=== PATIENT | female | born 1940 | race Caucasian/White ===

== ENCOUNTER 2016-10-16 21:04 | Emergency (ER) | payer OTHER ==
[~2016-10-16] VITALS: Ht 162.6 cm; Wt 76.9 kg
[2016-10-16 21:58] LABS: HEMATOCRIT 31.9 % (36.0-46.0); MCH 26.3 PG (29.0-34.0); MCHC 32.6 G/DL (30.0-36.0); MCV 80.6 FL (83-99); MEAN PLAT.VOLUME 11.9 uM^3 (9.5-12.4); PLATELET COUNT 243 K/uL (156-360); RBC DIS.WIDTH-CV 14.3 % (11.8-14.6); RBC DIS.WIDTH-SD 40.8 % (39-53); RED BLOOD COUNT 3.96 M/uL (3.80-5.20); WHITE BLOOD COUNT 6.1 K/uL (4.1-10.2)
[2016-10-16 22:08] LABS: CHLORIDE 108 mEq/L (99-109); POTASSIUM 4.3 mEq/L (3.7-5.4); SODIUM 140 mEq/L (136-147)
[2016-10-16 22:10] LABS: GLUCOSE 326 mg/dL (70-99)
[2016-10-16 22:11] LABS: ANION GAP 13 MEQ/L (2-14)
[2016-10-16 22:12] LABS: TOTAL BILIRUBIN 0.2 mg/dL (0.0-1.0)
[2016-10-16 22:14] LABS: ALKALINE PHOSPHATASE 82 IU/L (3-129); GFR ESTIMATE (CALCULATED) 31 mL/min/
[2016-10-16 22:15] LABS: UREA NITROGEN (BUN) 42 mg/dL (9-23)
[2016-10-16 22:17] LABS: LIPASE 23 U/L (1.0-51.0)
[2016-10-16 22:49] LABS: ADD MIUA? YES; BILIRUBIN NEGATIVE; BLOOD NEGATIVE; COLOR YELLOW ((YELLOW)); GLUCOSE (STRIP) NEGATIVE; KETONES NEGATIVE; LEUKOCYTES MODERATE; NITRITE NEGATIVE; PROTEIN (STRIP) 30; SPECIFIC GRAVITY 1.013 (1.000-1.030); UROBILINOGEN 0.2 MG/DL (0.2-1.0)
[2016-10-16 22:54] LABS: BACTERIA 2+ /HPF; EPITHELIAL CELLS RARE /HPF; MUCUS TRACE /LPF; RED BLOOD CELLS 0-5 /HPF (0-5); UCUL ADDED? YES; WHITE BLOOD CELLS 20-30 /HPF (0-5)
[2016-10-17 00:30] VITALS: BP 167/105
[2016-10-17] MEDS ORDERED: BACTRIM,SEPT1 TABLET PO (00:46)
== END 2016-10-17 05:13 | disposition home or self-care (01) ==
LOC: EME 21:04
DX: N39.0 Urinary tract infection, site not specified (principal); R19.7 Diarrhea, unspecified; N18.9 Chronic kidney disease, unspecified
CPT/HCPCS: 74176; 80053; 81003; 83690; 85027; 87077; 87086; 87186; 87493; 87506; 93005; 99281; 99285; J7030

== ENCOUNTER 2017-09-24 13:57 | Emergency (ER) | payer OTHER ==
[~2017-09-24] VITALS: Ht 162.6 cm; Wt 79.5 kg
[~2017-09-24 13:57] MED LIST: BACTRIM,SEPT1 TABLET PO
[2017-09-24 14:35] LABS: APPEARANCE CLOUDY ((CLEAR)); BILIRUBIN NEGATIVE; BLOOD SMALL; COLOR YELLOW ((YELLOW)); GLUCOSE (STRIP) 50; KETONES NEGATIVE; LEUKOCYTES SMALL; NITRITE NEGATIVE; PROTEIN (STRIP) 100; SPECIFIC GRAVITY 1.014 (1.000-1.030); UROBILINOGEN 0.2 MG/DL (0.2-1.0)
[2017-09-24 14:36] LABS: HEMATOCRIT 32.9 % (36.0-46.0); HEMOGLOBIN 10.7 G/DL (11.9-15.5); MCH 26.9 PG (29.0-34.0); MCHC 32.5 G/DL (30.0-36.0); MCV 82.7 FL (83-99); PLATELET COUNT 216 K/uL (156-360); RBC DIS.WIDTH-SD 39.7 % (39-53); RED BLOOD COUNT 3.98 M/uL (3.80-5.20); WHITE BLOOD COUNT 5.5 K/uL (4.1-10.2)
[2017-09-24 15:04] LABS: BACTERIA 3+ /HPF; EPITHELIAL CELLS 1+ /HPF; MUCUS NONE SEEN /LPF; RED BLOOD CELLS NONE SEEN /HPF (0-5); UCUL ADDED? YES; WHITE BLOOD CELLS 0-5 /HPF (0-5)
[2017-09-24] MEDS ORDERED: COLACE100 MG PO (15:26)
[2017-09-24] MEDS ORDERED: ULTRAM50 MG PO (15:26)
[2017-09-24] MEDS ORDERED: BACTRIM,SEPT1 TABLET PO (15:26)
[2017-09-24 15:57] VITALS: BP 188/88
[2017-09-24 16:03] LABS: CHLORIDE 103 MEQ/L (99-109); CREATININE 1.6 MG/DL (0.6-1.3); GFR ESTIMATE (CALCULATED) 33 mL/min/; GLUCOSE 249 mg/dL (70-99); POTASSIUM 4.4 MEQ/L (3.7-5.4); SODIUM 137 MEQ/L (136-147); UREA NITROGEN (BUN) 44 mg/dL (9-23)
[2017-09-24 16:04] LABS: ALBUMIN 3.8 G/DL (3.2-4.8); ALKALINE PHOSPHATASE 69 IU/L (3-129); ALT (GPT) 16 IU/L (3-49); AST (GOT) 19 IU/L (2-34); LIPASE 65 U/L (1.0-51.0); TOTAL BILIRUBIN 0.3 MG/DL (0.0-1.0); TOTAL PROTEIN 6.6 G/DL (6.4-8.3)
== END 2017-09-24 15:26 | disposition home or self-care (01) ==
LOC: EME 13:57
PROVIDERS: Physician Assistant
DX: N39.0 Urinary tract infection, site not specified (principal); M54.42 Lumbago with sciatica, left side; K59.00 Constipation, unspecified; I10 Essential (primary) hypertension; Z90.49 Acquired absence of other specified parts of digestive tract
CPT/HCPCS: 74176; 80048; 80076; 81003; 83690; 85027; 87086

== ENCOUNTER 2017-09-26 13:31 | Inpatient (IN) | payer OTHER ==
[~2017-09-26] VITALS: Ht 162.6 cm; Wt 81.3 kg
[~2017-09-26 13:31] MED LIST changes: +COLACE100 MG PO; +ULTRAM50 MG PO
[2017-09-26 14:46] LABS: HEMATOCRIT 31.6 % (36.0-46.0); HEMOGLOBIN 10.5 G/DL (11.9-15.5); MCH 27.5 PG (29.0-34.0); MCHC 33.2 G/DL (30.0-36.0); MCV 82.7 FL (83-99); PLATELET COUNT 219 K/uL (156-360); RBC DIS.WIDTH-CV 13.3 % (11.8-14.6); RED BLOOD COUNT 3.82 M/uL (3.80-5.20); WHITE BLOOD COUNT 5.9 K/uL (4.1-10.2)
[2017-09-26 14:54] LABS: CHLORIDE 103 mEq/L (99-109); POTASSIUM 4.9 mEq/L (3.7-5.4); SODIUM 137 mEq/L (136-147)
[2017-09-26 14:57] LABS: TOTAL PROTEIN 6.9 g/dL (6.4-8.3)
[2017-09-26 14:58] LABS: GLUCOSE 82 mg/dL (70-99); TOTAL BILIRUBIN 0.2 mg/dL (0.0-1.0)
[2017-09-26 15:00] LABS: ALKALINE PHOSPHATASE 80 IU/L (3-129); GFR ESTIMATE (CALCULATED) 26 mL/min/
[2017-09-26 15:01] LABS: UREA NITROGEN (BUN) 43 mg/dL (9-23)
[2017-09-26 15:02] LABS: AST (GOT) 25 IU/L (2-34)
[2017-09-26 15:03] LABS: ALT (GPT) 21 IU/L (3-49)
[2017-09-26 16:18] LABS: APPEARANCE CLEAR ((CLEAR)); BILIRUBIN NEGATIVE; BLOOD SMALL; COLOR YELLOW ((YELLOW)); GLUCOSE (STRIP) NEGATIVE; KETONES NEGATIVE; LEUKOCYTES MODERATE; NITRITE NEGATIVE; PROTEIN (STRIP) 100; SPECIFIC GRAVITY 1.014 (1.000-1.030); UROBILINOGEN 0.2 MG/DL (0.2-1.0)
[2017-09-26 16:33] LABS: BACTERIA NONE SEEN /HPF; EPITHELIAL CELLS RARE /HPF; MUCUS TRACE /LPF; RED BLOOD CELLS 0-5 /HPF (0-5); UCUL ADDED? YES
[2017-09-26] MEDS ORDERED: BACTRIM,SEPT1 TABLET PO (19:36)
[2017-09-26] MEDS ORDERED: LANTUS 3 M100 UNITS1 SC ×2 (19:37)
[2017-09-26] MEDS ORDERED: PROTONIX40 MG PO (19:38)
[2017-09-26] MEDS ORDERED: GLIPIZIDE XL10 MG PO (19:38)
[2017-09-26] MEDS ORDERED: FIORICET 50-301 EAC1 PO (19:39)
[2017-09-26] MEDS ORDERED: ROBAXIN500 MG PO (19:39)
[2017-09-26] MEDS ORDERED: LATANOPROST2.5 ML RIGHT EYE (19:39)
[2017-09-26] MEDS ORDERED: ISOSORBIDE DINI20 MG PO (19:40)
[2017-09-26] MEDS ORDERED: LOPID600 MG PO (19:40)
[2017-09-26] MEDS ORDERED: ZOCOR40 MG PO (19:41)
[2017-09-26] MEDS ORDERED: ZESTORETIC 10-1 EAC1 PO (19:41)
[2017-09-26 23:01] VITALS: BP 174/76
[2017-09-27] VITALS (7 sets, daily range): BP systolic 112–139; BP diastolic 55–88
[2017-09-27 06:56] LABS: HEMATOCRIT 28.7 % (36.0-46.0); HEMOGLOBIN 9.1 G/DL (11.9-15.5); MCH 26.9 PG (29.0-34.0); MCHC 31.7 G/DL (30.0-36.0); MCV 84.9 FL (83-99); PLATELET COUNT 202 K/uL (156-360); RBC DIS.WIDTH-CV 13.5 % (11.8-14.6); RBC DIS.WIDTH-SD 41.9 % (39-53); RED BLOOD COUNT 3.38 M/uL (3.80-5.20); WHITE BLOOD COUNT 5.7 K/uL (4.1-10.2)
[2017-09-27 07:19] LABS: ALBUMIN 3.4 G/DL (3.2-4.8); ALKALINE PHOSPHATASE 58 IU/L (3-129); ALT (GPT) 16 IU/L (3-49); AST (GOT) 22 IU/L (2-34); CHLORIDE 106 MEQ/L (99-109); CREATININE 2.2 MG/DL (0.6-1.3); GFR ESTIMATE (CALCULATED) 23 mL/min/; POTASSIUM 4.5 MEQ/L (3.7-5.4); SODIUM 141 MEQ/L (136-147); UREA NITROGEN (BUN) 45 mg/dL (9-23)
[2017-09-27 07:45] LABS: GLUCOSE 39 mg/dL (70-99); TOTAL BILIRUBIN 0.2 MG/DL (0.0-1.0); TOTAL PROTEIN 5.6 G/DL (6.4-8.3)
[2017-09-28 03:30] VITALS: BP 129/58
[2017-09-28 07:14] VITALS: BP 131/60
[2017-09-28 07:35] LABS: BASOPHIL (%) 0.7 % (0-1); EOSINOPHIL (%) 3.3 % (0-5); EOSINOPHIL COUNT 0.2 K/uL (0-0.3); HEMATOCRIT 30.4 % (36.0-46.0); HEMOGLOBIN 9.6 G/DL (11.9-15.5); IMMATURE GRANULOCYTE (%) 0.4 % (0.0-0.7); LYMPHOCYTE (%) 17.4 % (15-42); LYMPHOCYTE COUNT 0.8 K/uL (1.0-2.8); MCH 27.3 PG (29.0-34.0); MCHC 31.6 G/DL (30.0-36.0); MCV 86.4 FL (83-99); MONOCYTE (%) 9.1 % (3-12); MONOCYTE COUNT 0.4 K/uL (0-0.8); NEUTROPHIL (%) 69.1 % (45-76); NEUTROPHIL COUNT 3.2 K/uL (1.8-6.4); PLATELET COUNT 208 K/uL (156-360); RBC DIS.WIDTH-CV 13.8 % (11.8-14.6); RBC DIS.WIDTH-SD 42.9 % (39-53); RED BLOOD COUNT 3.52 M/uL (3.80-5.20); WHITE BLOOD COUNT 4.6 K/uL (4.1-10.2)
[2017-09-28 08:01] LABS: ALBUMIN 3.6 G/DL (3.2-4.8); CHLORIDE 106 MEQ/L (99-109); GFR ESTIMATE (CALCULATED) 26 mL/min/; MAGNESIUM 1.9 mg/dl (1.3-2.7); POTASSIUM 4.7 MEQ/L (3.7-5.4); SODIUM 139 MEQ/L (136-147); UREA NITROGEN (BUN) 38 mg/dL (9-23)
[2017-09-28 08:02] LABS: GLUCOSE 126 mg/dL (70-99)
[2017-09-28 11:36] VITALS: BP 118/57
[2017-09-28 15:16] VITALS: BP 126/59
[2017-09-28 19:40] VITALS: BP 152/67
[2017-09-28 23:13] VITALS: BP 127/60
[2017-09-29 03:48] VITALS: BP 111/53
[2017-09-29 07:16] VITALS: BP 138/66
[2017-09-29 07:16] LABS: ALBUMIN 3.1 G/DL (3.2-4.8); CHLORIDE 109 MEQ/L (99-109); CREATININE 1.8 MG/DL (0.6-1.3); GFR ESTIMATE (CALCULATED) 29 mL/min/; GLUCOSE 155 mg/dL (70-99); PHOSPHORUS 3.7 mg/dL (2.5-4.9); POTASSIUM 4.8 MEQ/L (3.7-5.4); SODIUM 139 MEQ/L (136-147); UREA NITROGEN (BUN) 41 mg/dL (9-23)
[2017-09-29 12:00] VITALS: BP 139/64
[2017-09-29 14:18] LABS: UR CREATININE CONCENTRATION 42.1 MG/DL
[2017-09-29 15:32] LABS: HEMOGLOBIN A1c (GLYCOHEMOGLOB) 9.2 % (Below 5.7)
[2017-09-29 17:30] VITALS: BP 168/74
[2017-09-29 19:32] VITALS: BP 153/67
[2017-09-29 23:49] VITALS: BP 139/65
[2017-09-30 03:30] VITALS: BP 134/62
[2017-09-30 06:25] LABS: BASOPHIL (%) 0.7 % (0-1); EOSINOPHIL COUNT 0.1 K/uL (0-0.3); HEMATOCRIT 25.9 % (36.0-46.0); HEMOGLOBIN 8.1 G/DL (11.9-15.5); IMMATURE GRANULOCYTE (%) 0.2 % (0.0-0.7); LYMPHOCYTE (%) 30.4 % (15-42); LYMPHOCYTE COUNT 1.3 K/uL (1.0-2.8); MCH 26.6 PG (29.0-34.0); MCHC 31.3 G/DL (30.0-36.0); MCV 85.2 FL (83-99); MONOCYTE (%) 8.8 % (3-12); MONOCYTE COUNT 0.4 K/uL (0-0.8); NEUTROPHIL (%) 56.9 % (45-76); NEUTROPHIL COUNT 2.5 K/uL (1.8-6.4); PLATELET COUNT 204 K/uL (156-360); RBC DIS.WIDTH-CV 13.3 % (11.8-14.6); RBC DIS.WIDTH-SD 40.8 % (39-53); RED BLOOD COUNT 3.04 M/uL (3.80-5.20); WHITE BLOOD COUNT 4.3 K/uL (4.1-10.2)
[2017-09-30 06:57] LABS: ALBUMIN 3.2 G/DL (3.2-4.8); CHLORIDE 108 MEQ/L (99-109); CREATININE 1.6 MG/DL (0.6-1.3); GFR ESTIMATE (CALCULATED) 33 mL/min/; GLUCOSE 221 mg/dL (70-99); PHOSPHORUS 3.8 mg/dL (2.5-4.9); POTASSIUM 4.6 MEQ/L (3.7-5.4); SODIUM 137 MEQ/L (136-147); UREA NITROGEN (BUN) 40 mg/dL (9-23)
[2017-09-30 07:15] VITALS: BP 170/90
[2017-09-30 11:33] VITALS: BP 190/80
[2017-09-30] MEDS ORDERED: APRESOLINE25 MG PO (14:27)
[2017-09-30] MEDS ORDERED: DILTIAZEM 24HR120 MG PO (14:27)
[2017-09-30 15:18] VITALS: BP 95/55
== END 2017-09-30 15:46 | disposition home or self-care (01) | DRG 392 ==
LOC: EME 13:31 → 2EAST 21:01 → EDOF 21:01 → ENRESERV 21:02 → 2EAST 22:36 → ENPENDDIS 09-30 → 2EAST 09-30 15:46
PROVIDERS: Internal Medicine; Internal Medicine Nephrology
DX: K52.9 Noninfective gastroenteritis and colitis, unspecified (principal); N17.9 Acute kidney failure, unspecified; E86.0 Dehydration; N18.3 Chronic kidney disease, stage 3 (moderate); I12.9 Hypertensive chronic kidney disease with stage 1 through stage 4 chronic kidney disease, or unspecified chronic kidney disease; E78.5 Hyperlipidemia, unspecified; E11.22 Type 2 diabetes mellitus with diabetic chronic kidney disease; I25.10 Atherosclerotic heart disease of native coronary artery without angina pectoris; E53.8 Deficiency of other specified B group vitamins; K21.9 Gastro-esophageal reflux disease without esophagitis; N39.0 Urinary tract infection, site not specified; D63.1 Anemia in chronic kidney disease; Z87.440 Personal history of urinary (tract) infections; E11.649 Type 2 diabetes mellitus with hypoglycemia without coma; M19.90 Unspecified osteoarthritis, unspecified site
CPT/HCPCS: 74019; 74176; 76770; 80048; 80053; 80069; 80076; 81003; 82040; 82272; 82570; 82948; 83036; 83690; 83735; 84156; 85025; 85027; 87040; 87086; 99281; 99285; C9113; J0696; J1170; J1815; J2405; J7030; S0028

== ENCOUNTER 2017-10-15 18:22 | Emergency (ER) | payer OTHER ==
[~2017-10-15] VITALS: Ht 162.6 cm; Wt 83.3 kg
[~2017-10-15 18:22] MED LIST changes: +APRESOLINE25 MG PO; +DILTIAZEM 24HR120 MG PO; +FIORICET 50-301 EAC1 PO; +GLIPIZIDE XL10 MG PO; +ISOSORBIDE DINI20 MG PO; +LANTUS 3 M100 UNITS1 SC; +LATANOPROST2.5 ML RIGHT EYE; +LOPID600 MG PO; +PROTONIX40 MG PO; +ROBAXIN500 MG PO; +ZESTORETIC 10-1 EAC1 PO; +ZOCOR40 MG PO
[2017-10-15 19:35] LABS: HEMATOCRIT 29.2 % (36.0-46.0); HEMOGLOBIN 9.4 G/DL (11.9-15.5); MCH 26.9 PG (29.0-34.0); MCHC 32.2 G/DL (30.0-36.0); MCV 83.7 FL (83-99); PLATELET COUNT 187 K/uL (156-360); RBC DIS.WIDTH-CV 13.7 % (11.8-14.6); RBC DIS.WIDTH-SD 41.4 % (39-53); RED BLOOD COUNT 3.49 M/uL (3.80-5.20); WHITE BLOOD COUNT 7.3 K/uL (4.1-10.2)
[2017-10-15 19:50] LABS: ALBUMIN 3.5 G/DL (3.2-4.8); CHLORIDE 99 MEQ/L (99-109); POTASSIUM 3.8 MEQ/L (3.7-5.4); SODIUM 134 MEQ/L (136-147); TOTAL BILIRUBIN 0.3 MG/DL (0.0-1.0)
[2017-10-15 19:56] LABS: ALKALINE PHOSPHATASE 89 IU/L (3-129); ALT (GPT) 13 IU/L (3-49); AST (GOT) 14 IU/L (2-34); CREATININE 1.3 MG/DL (0.6-1.3); GFR ESTIMATE (CALCULATED) 42 mL/min/; GLUCOSE 367 mg/dL (70-99); TOTAL PROTEIN 6.4 G/DL (6.4-8.3); UREA NITROGEN (BUN) 21 mg/dL (9-23)
[2017-10-15] MEDS ORDERED: LANTUS 10100 UNITS/ SC (23:46)
[2017-10-15] MEDS ORDERED: CARDIZEM CD,CA120 MG PO (23:46)
[2017-10-16 04:02] LABS: APPEARANCE CLEAR ((CLEAR)); BILIRUBIN NEGATIVE; BLOOD NEGATIVE; COLOR STRAW ((YELLOW)); GLUCOSE (STRIP) 150; KETONES NEGATIVE; LEUKOCYTES NEGATIVE; NITRITE NEGATIVE; PROTEIN (STRIP) >=500; UROBILINOGEN 0.2 MG/DL (0.2-1.0)
[2017-10-16 04:19] LABS: BACTERIA RARE /HPF; EPITHELIAL CELLS RARE /HPF; MUCUS NONE SEEN /LPF; RED BLOOD CELLS 0-5 /HPF (0-5); UCUL ADDED? NO; WHITE BLOOD CELLS 0-5 /HPF (0-5)
[2017-10-16 05:35] VITALS: BP 205/96
== END 2017-10-16 05:37 | disposition home or self-care (01) ==
LOC: EME 18:22
PROVIDERS: Emergency Medicine; Physician Assistant
DX: M54.16 Radiculopathy, lumbar region (principal); I70.203 Unspecified atherosclerosis of native arteries of extremities, bilateral legs; I10 Essential (primary) hypertension; E11.9 Type 2 diabetes mellitus without complications; I25.2 Old myocardial infarction; Z79.4 Long term (current) use of insulin; Z90.710 Acquired absence of both cervix and uterus; Z90.49 Acquired absence of other specified parts of digestive tract; Z90.89 Acquired absence of other organs; Z88.0 Allergy status to penicillin
CPT/HCPCS: 70450; 71046; 80048; 80053; 81003; 82550; 82948; 85027; 93005; 93925; 93970; 99281; 99284; J2270; J2765; J7040